=== PATIENT | female | born 1960 | race American Indian/Alaskan Native ===

== ENCOUNTER 2020-06-25 07:56 | Emergency (ER) | payer MEDICARE ==
[2020-06-25 08:04] VITALS: BP 111/92
== END 2020-06-25 10:38 | disposition left against medical advice (07) ==
LOC: ED 07:56
DX: R05 Cough (principal); R09.89 Other specified symptoms and signs involving the circulatory and respiratory systems; J02.9 Acute pharyngitis, unspecified; Z53.21 Procedure and treatment not carried out due to patient leaving prior to being seen by health care provider

== ENCOUNTER 2020-07-17 07:47 | Emergency (ER) | payer MEDICARE ==
[2020-07-17] MEDS ORDERED: SODIUM CHLORIDE 0.9% 1000 ML 1,000 ML IV ONE ×2 (08:29→10:33)
--- NOTE | 2020-07-17 08:30 | Emergency Department Report ---
ED General Adult HPI - General Chief complaint: Dizziness Stated complaint: DIZZINESS PUI?: No Time Seen by Provider: 07/17/20 08:21 Source: patient, RN notes reviewed, old records reviewed Mode of arrival: Ambulatory Limitations: No Limitations - History of Present Illness Initial comments: The patient was evaluated in the emergency department for symptoms described in the history of present illness. He/she was evaluated in the context of the global COVID-19 pandemic, which necessitated consideration that the patient might be at risk for infection with the virus that causes COVID-19. Institutional protocols and algorithms that pertain to the evaluation of patients at risk for COVID-19 are in a state of rapid change based on information released by regulatory bodies including the CDC and federal and state organizations. These policies and algorithms were followed during the patient's care in the emergency department. Please note that these policies, procedures and recommendations changed on a rapid basis. This is a 60-year-old female. She is not known to myself previously. Her past medical history includes general debility, malnutrition, and homelessness. Patient was recently admitted to the medical service at this hospital April 2020. She convalesced well, and was discharged. Today, the patient presents to the ER with a complaint of resolved/generalized dizziness/lightheadedness, which resolved while in the emergency room. She complained of feeling generally lightheaded and weak. She denies headache, neck pain, chest pain, abdominal pain, shortness of breath. She did endorse nonspecific cough, and chest tightness with cough, this has been going on for a few days. No loss of taste, no loss of smell. She denies dysuria. She reports one episode of loose watery brown stool today. She had 2 watery episodes of "diarrhea" yesterday. Urine cultures from 2 months ago were negative for organisms. Patient states she is not currently taking any medications. After being given IV fluids in the emergency room, the patient felt much improved. She does not currently smoke, or consume alcohol or recreational drugs. -: Gradual Consistency: now resolved Improves with: medication (Improved with IV fluid) Worsens with: none - Related Data Home Medications Medication Instructions Recorded Confirmed Last Taken No Known Home Medications [No 07/17/20 07/17/20 Unknown Reported Home Medications] Allergies Allergy/AdvReac Type Severity Reaction Status Date / Time Penicillins Allergy Unknown Verified 07/17/20 10:00 Sulfa (Sulfonamide Allergy Unknown Verified 07/17/20 10:00 Antibiotics) ED Review of Systems ROS: Stated complaint: DIZZINESS Other details as noted in HPI Constitutional: malaise, weakness. denies: fever Eyes: denies: eye discharge ENT: denies: epistaxis Respiratory: cough Cardiovascular: as per HPI. denies: palpitations, dyspnea on exertion, orthopnea, syncope Gastrointestinal: diarrhea. denies: nausea, vomiting Genitourinary: denies: dysuria Musculoskeletal: denies: back pain Skin: denies: lesions Neurological: weakness Hematological/Lymphatic: denies: easy bleeding ED Past Medical Hx - Past Medical History Previous Medical History?: Yes Hx Congestive Heart Failure: No Hx Diabetes: No Hx Asthma: No Hx COPD: No Additional medical history: malnutrition - Surgical History Past Surgical History?: Yes Additional Surgical History: Hysterectomy, Tonsillectomy - Social History Smoking Status: Never Smoker Substance Use Type: Alcohol - Medications Home Medications: Home Medications Medication Instructions Recorded Confirmed Last Taken Type No Known Home Medications [No 07/17/20 07/17/20 Unknown History Reported Home Medications] ED Physical Exam - General Limitations: No Limitations General appearance: alert, in no apparent distress - Head Head exam: Present: atraumatic, normocephalic - Eye Eye exam: Present: normal appearance, PERRL, EOMI, other (Visual acuity intact to finger counting, color perception, reading at a close distance). Absent: nystagmus - ENT ENT exam: Present: normal exam, normal orophraynx, mucous membranes moist, normal external ear exam - Neck Neck exam: Present: normal inspection, full ROM. Absent: tenderness, meningismus - Respiratory Respiratory exam: Present: normal lung sounds bilaterally. Absent: respiratory distress, wheezes, rales, rhonchi, stridor, decreased breath sounds - Cardiovascular Cardiovascular Exam: Present: regular rate, normal rhythm, normal heart sounds. Absent: bradycardia, tachycardia, irregular rhythm, systolic murmur, diastolic murmur, rubs, gallop - GI/Abdominal GI/Abdominal exam: Present: soft. Absent: distended, tenderness, guarding, rebound, rigid, pulsatile mass - Extremities Exam Extremities exam: Present: normal inspection, full ROM, other (2+ pulses noted in the bilateral upper and lower extremities. There is no palpable cord. negative Homans sign. Muscular compartments are soft. The pelvis is stable.). Absent: pedal edema, calf tenderness - Back Exam Back exam: Present: normal inspection, full ROM. Absent: tenderness, CVA tenderness (R), CVA tenderness (L), paraspinal tenderness, vertebral tenderness - Neurological Exam Neurological exam: Present: alert, oriented X3, normal gait, other (There is no facial droop. The tongue is midline. Extraocular movements are intact bilaterally. There is 5 out of 5 strength in bilateral upper and lower extremities. Sensation is intact to light touch bilateral upper and lower extremities. There is no past-pointing. There is no pronator drift. There is normal [id number]. There is a normal gait.). Absent: motor sensory deficit - Psychiatric Psychiatric exam: Present: normal affect, normal mood - Skin Skin exam: Present: warm, dry, intact, normal color. Absent: rash ED Course Vital Signs 07/17/20 07/17/20 07/17/20 08:14 08:30 09:00 Temperature 98.3 F 98 F Pulse Rate 58 L 73 75 Respiratory 20 12 12 Rate Blood Pressure 66/30 Blood Pressure 100/70 120/75 [Left] O2 Sat by Pulse 100 97 99 Oximetry 07/17/20 07/17/20 07/17/20 09:23 09:45 10:00 Temperature Pulse Rate 75 76 74 Respiratory 12 24 16 Rate Blood Pressure 113/66 117/71 Blood Pressure 111/69 [Left] O2 Sat by Pulse 100 99 100 Oximetry 07/17/20 07/17/20 10:45 11:15 Temperature Pulse Rate 73 74 Respiratory 16 17 Rate Blood Pressure 114/70 115/66 Blood Pressure [Left] O2 Sat by Pulse 100 98 Oximetry - Reevaluation(s) Reevaluation #1: 07/17/20 11:20 Differential diagnosis, including the not limited to: Orthostasis, vagal event, structural cardiac disease, dehydration, pulmonary embolism Assessment and plan: 60-year-old female, who is not currently tachycardic, tachypneic or hypoxic, with resolved hypotension, GCS 15, walking with a steady gait, low risk for major adverse cardiac event as per heart score, with a complaint of resolved lightheadedness, improved with fluids, a few days of chest tightness with coughing, troponin negative x1, now in no acute distress. Check basic laboratory studies. EKG x2. D-dimer given nonspecific left axis deviation and EKG, may be secondary to lead placement, however, appears new when compared to prior EKG. Reassess after initial data points. Have discussed plan of care with patient, who is amenable to this plan of care. Reevaluation #2: 07/17/20 12:23 Final reevaluation. Blood pressure 120/70. No episodes of syncope/loss of consciousness. D-dimer negative. EKG #2 unchanged from prior EKG. Left axis deviation resolved. Urinalysis reviewed and appreciated. No endorsement of urinary symptoms. Recently had negative urine cultures. Sleeping comfortably in his regimen, and in no acute distress, patient also walks with a steady gait. Patient has been observed in this department for over 4.5 hours. She has not had any clinical decompensation or untoward events. Most likely diagnosis is orthostasis/vagal event, with dehydration, now corrected with IV fluids. Discussed plan of care with patient. She verbalizes understanding. She is amenable to discharge with close outpatient follow-up. ED Medical Decision Making - Lab Data Result diagrams: 07/17/20 08:35 07/17/20 08:35 Vital Signs 07/17/20 07/17/20 07/17/20 08:14 08:30 09:00 Temperature 98.3 F 98 F Pulse Rate 58 L 73 75 Respiratory 20 12 12 Rate Blood Pressure 66/30 Blood Pressure 100/70 120/75 [Left] O2 Sat by Pulse 100 97 99 Oximetry 07/17/20 07/17/20 07/17/20 09:23 09:45 10:00 Temperature Pulse Rate 75 76 74 Respiratory 12 24 16 Rate Blood Pressure 113/66 117/71 Blood Pressure 111/69 [Left] O2 Sat by Pulse 100 99 100 Oximetry 07/17/20 10:45 Temperature Pulse Rate 73 Respiratory 16 Rate Blood Pressure 114/70 Blood Pressure [Left] O2 Sat by Pulse 100 Oximetry Lab Results 07/17/20 07/17/20 07/17/20 Range/Units 08:35 08:35 08:35 WBC 4.7 (4.5-11.0) K/mm3 RBC 5.53 H (3.65-5.03) M/mm3 Hgb 11.7 (10.1-14.3) gm/dl Hct 37.6 (30.3-42.9) % MCV 68 L (79-97) fl MCH 21 L (28-32) pg MCHC 31 (30-34) % RDW 16.0 H (13.2-15.2) % Plt Count 178 (140-440) K/mm3 Lymph % (Auto) 20.3 (13.4-35.0) % Charles % (Auto) 6.4 (0.0-7.3) % Eos % (Auto) 0.0 (0.0-4.3) % Baso % (Auto) 0.4 (0.0-1.8) % Lymph # (Auto) 1.0 L (1.2-5.4) K/mm3 Charles # (Auto) 0.3 (0.0-0.8) K/mm3 Eos # (Auto) 0.0 (0.0-0.4) K/mm3 Baso # (Auto) 0.0 (0.0-0.1) K/mm3 Seg Neutrophils % 72.9 H (40.0-70.0) % Seg Neutrophils # 3.4 (1.8-7.7) K/mm3 PT 13.6 (12.2-14.9) Sec. INR 1.05 (0.87-1.13) Sodium 139 (137-145) mmol/L Potassium 4.4 (3.6-5.0) mmol/L Chloride 100.6 (98-107) mmol/L Carbon Dioxide 27 (22-30) mmol/L Anion Gap 16 mmol/L BUN 12 (7-17) mg/dL Creatinine 1.1 (0.6-1.2) mg/dL Estimated GFR > 60 ml/min BUN/Creatinine Ratio 11 % Glucose 115 H (65-100) mg/dL Lactic Acid (0.7-2.0) mmol/L Calcium 9.0 (8.4-10.2) mg/dL Magnesium (1.7-2.3) mg/dL Total Bilirubin 0.40 (0.1-1.2) mg/dL AST 29 (5-40) units/L ALT 15 (7-56) units/L Alkaline Phosphatase 65 (35-129) units/L Total Creatine Kinase (30-135) units/L Troponin T < 0.010 (0.00-0.029) ng/mL Total Protein 7.5 (6.3-8.2) g/dL Albumin 4.1 (3.9-5) g/dL Albumin/Globulin Ratio 1.2 % TSH (0.270-4.200) mlU/mL Urine Color (Yellow) Urine Turbidity (Clear) Urine pH (5.0-7.0) Ur Specific [place] (1.003-1.030) Urine Protein (Negative) mg/dL Urine Glucose (UA) (Negative) mg/dL Urine Ketones (Negative) mg/dL Urine Blood (Negative) Urine Nitrite (Negative) Urine Bilirubin (Negative) Urine Urobilinogen (<2.0) mg/dL Ur Leukocyte Esterase (Negative) Urine WBC (Auto) (0.0-6.0) /HPF Urine RBC (Auto) (0.0-6.0) /HPF U Epithel Cells (Auto) (0-13.0) /HPF Urine Mucus /HPF Salicylates (2.8-20.0) mg/dL Acetaminophen (10.0-30.0) ug/mL Plasma/Serum Alcohol (0-0.07) % 07/17/20 07/17/20 07/17/20 Range/Units 08:35 08:35 08:35 WBC (4.5-11.0) K/mm3 RBC (3.65-5.03) M/mm3 Hgb (10.1-14.3) gm/dl Hct (30.3-42.9) % MCV (79-97) fl MCH (28-32) pg MCHC (30-34) % RDW (13.2-15.2) % Plt Count (140-440) K/mm3 Lymph % (Auto) (13.4-35.0) % Charles % (Auto) (0.0-7.3) % Eos % (Auto) (0.0-4.3) % Baso % (Auto) (0.0-1.8) % Lymph # (Auto) (1.2-5.4) K/mm3 Charles # (Auto) (0.0-0.8) K/mm3 Eos # (Auto) (0.0-0.4) K/mm3 Baso # (Auto) (0.0-0.1) K/mm3 Seg Neutrophils % (40.0-70.0) % Seg Neutrophils # (1.8-7.7) K/mm3 PT (12.2-14.9) Sec. INR (0.87-1.13) Sodium (137-145) mmol/L Potassium (3.6-5.0) mmol/L Chloride (98-107) mmol/L Carbon Dioxide (22-30) mmol/L Anion Gap mmol/L BUN (7-17) mg/dL Creatinine (0.6-1.2) mg/dL Estimated GFR ml/min BUN/Creatinine Ratio % Glucose (65-100) mg/dL Lactic Acid 1.00 (0.7-2.0) mmol/L Calcium (8.4-10.2) mg/dL Magnesium 2.50 H (1.7-2.3) mg/dL Total Bilirubin (0.1-1.2) mg/dL AST (5-40) units/L ALT (7-56) units/L Alkaline Phosphatase (35-129) units/L Total Creatine Kinase 115 (30-135) units/L Troponin T (0.00-0.029) ng/mL Total Protein (6.3-8.2) g/dL Albumin (3.9-5) g/dL Albumin/Globulin Ratio % TSH (0.270-4.200) mlU/mL Urine Color (Yellow) Urine Turbidity (Clear) Urine pH (5.0-7.0) Ur Specific [place] (1.003-1.030) Urine Protein (Negative) mg/dL Urine Glucose (UA) (Negative) mg/dL Urine Ketones (Negative) mg/dL Urine Blood (Negative) Urine Nitrite (Negative) Urine Bilirubin (Negative) Urine Urobilinogen (<2.0) mg/dL Ur Leukocyte Esterase (Negative) Urine WBC (Auto) (0.0-6.0) /HPF Urine RBC (Auto) (0.0-6.0) /HPF U Epithel Cells (Auto) (0-13.0) /HPF Urine Mucus /HPF Salicylates (2.8-20.0) mg/dL Acetaminophen (10.0-30.0) ug/mL Plasma/Serum Alcohol < 0.01 (0-0.07) % 11/22/20 11/22/20 11/22/20 Range/Units 08:35 08:35 08:35 WBC (4.5-11.0) K/mm3 RBC (3.65-5.03) M/mm3 Hgb (10.1-14.3) gm/dl Hct (30.3-42.9) % MCV (79-97) fl MCH (28-32) pg MCHC (30-34) % RDW (13.2-15.2) % Plt Count (140-440) K/mm3 Lymph % (Auto) (13.4-35.0) % Charles % (Auto) (0.0-7.3) % Eos % (Auto) (0.0-4.3) % Baso % (Auto) (0.0-1.8) % Lymph # (Auto) (1.2-5.4) K/mm3 Charles # (Auto) (0.0-0.8) K/mm3 Eos # (Auto) (0.0-0.4) K/mm3 Baso # (Auto) (0.0-0.1) K/mm3 Seg Neutrophils % (40.0-70.0) % Seg Neutrophils # (1.8-7.7) K/mm3 PT (12.2-14.9) Sec. INR (0.87-1.13) Sodium (137-145) mmol/L Potassium (3.6-5.0) mmol/L Chloride (98-107) mmol/L Carbon Dioxide (22-30) mmol/L Anion Gap mmol/L BUN (7-17) mg/dL Creatinine (0.6-1.2) mg/dL Estimated GFR ml/min BUN/Creatinine Ratio % Glucose (65-100) mg/dL Lactic Acid (0.7-2.0) mmol/L Calcium (8.4-10.2) mg/dL Magnesium (1.7-2.3) mg/dL Total Bilirubin (0.1-1.2) mg/dL AST (5-40) units/L ALT (7-56) units/L Alkaline Phosphatase (35-129) units/L Total Creatine Kinase (30-135) units/L Troponin T (0.00-0.029) ng/mL Total Protein (6.3-8.2) g/dL Albumin (3.9-5) g/dL Albumin/Globulin Ratio % TSH 2.240 (0.270-4.200) mlU/mL Urine Color (Yellow) Urine Turbidity (Clear) Urine pH (5.0-7.0) Ur Specific [place] (1.003-1.030) Urine Protein (Negative) mg/dL Urine Glucose (UA) (Negative) mg/dL Urine Ketones (Negative) mg/dL Urine Blood (Negative) Urine Nitrite (Negative) Urine Bilirubin (Negative) Urine Urobilinogen (<2.0) mg/dL Ur Leukocyte Esterase (Negative) Urine WBC (Auto) (0.0-6.0) /HPF Urine RBC (Auto) (0.0-6.0) /HPF U Epithel Cells (Auto) (0-13.0) /HPF Urine Mucus /HPF Salicylates < 0.3 L (2.8-20.0) mg/dL Acetaminophen 5.0 L (10.0-30.0) ug/mL Plasma/Serum Alcohol (0-0.07) % 07/17/20 Range/Units 09:53 WBC (4.5-11.0) K/mm3 RBC (3.65-5.03) M/mm3 Hgb (10.1-14.3) gm/dl Hct (30.3-42.9) % MCV (79-97) fl MCH (28-32) pg MCHC (30-34) % RDW (13.2-15.2) % Plt Count (140-440) K/mm3 Lymph % (Auto) (13.4-35.0) % Charles % (Auto) (0.0-7.3) % Eos % (Auto) (0.0-4.3) % Baso % (Auto) (0.0-1.8) % Lymph # (Auto) (1.2-5.4) K/mm3 Charles # (Auto) (0.0-0.8) K/mm3 Eos # (Auto) (0.0-0.4) K/mm3 Baso # (Auto) (0.0-0.1) K/mm3 Seg Neutrophils % (40.0-70.0) % Seg Neutrophils # (1.8-7.7) K/mm3 PT (12.2-14.9) Sec. INR (0.87-1.13) Sodium (137-145) mmol/L Potassium (3.6-5.0) mmol/L Chloride (98-107) mmol/L Carbon Dioxide (22-30) mmol/L Anion Gap mmol/L BUN (7-17) mg/dL Creatinine (0.6-1.2) mg/dL Estimated GFR ml/min BUN/Creatinine Ratio % Glucose (65-100) mg/dL Lactic Acid (0.7-2.0) mmol/L Calcium (8.4-10.2) mg/dL Magnesium (1.7-2.3) mg/dL Total Bilirubin (0.1-1.2) mg/dL AST (5-40) units/L ALT (7-56) units/L Alkaline Phosphatase (35-129) units/L Total Creatine Kinase (30-135) units/L Troponin T (0.00-0.029) ng/mL Total Protein (6.3-8.2) g/dL Albumin (3.9-5) g/dL Albumin/Globulin Ratio % TSH (0.270-4.200) mlU/mL Urine Color Yellow (Yellow) Urine Turbidity Clear (Clear) Urine pH 6.0 (5.0-7.0) Ur Specific [place] 1.018 (1.003-1.030) Urine Protein 100 mg/dl (Negative) mg/dL Urine Glucose (UA) Neg (Negative) mg/dL Urine Ketones Neg (Negative) mg/dL Urine Blood Neg (Negative) Urine Nitrite Neg (Negative) Urine Bilirubin Neg (Negative) Urine Urobilinogen < 2.0 (<2.0) mg/dL Ur Leukocyte Esterase Mod (Negative) Urine WBC (Auto) 20.0 H (0.0-6.0) /HPF Urine RBC (Auto) 3.0 (0.0-6.0) /HPF U Epithel Cells (Auto) 2.0 (0-13.0) /HPF Urine Mucus Few /HPF Salicylates (2.8-20.0) mg/dL Acetaminophen (10.0-30.0) ug/mL Plasma/Serum Alcohol (0-0.07) % - EKG Data -: EKG Interpreted by Pr EKG shows normal: sinus rhythm Rate: normal - EKG Data 07/17/20 11:19 Sinus rhythm, 72 bpm, left axis deviation, borderline atrial enlargement, minimal motion artifact. Abnormal EKG. Not a STEMI. Appears grossly unchanged from prior EKG, from April 2020, although left axis deviation appears to be somewhat new. - Radiology Data Radiology results: pending, report reviewed, image reviewed X-ray of the chest is negative for acute disease Critical care attestation.: If time is entered above; I have spent that time in minutes in the direct care of this critically ill patient, excluding procedure time. ED Disposition Clinical Impression: Dehydration, Pyuria, Lightheadedness Disposition: - TO HOME OR SELFCARE Is pt being admited?: No Does the pt Need Aspirin: No Condition: Stable Referrals: PRIMARY CARE, [Primary Care Provider] - 3-5 Days Heart Score - HEART Score History: Slightly suspicious EKG: Non-specific Age: 45-65 Risk factors: 1-2 risk factors Troponin: < normal limit HEART Score: 3 - Critical Actions Critical Actions: 0-3 pts:0.9-1.7%risk of adverse cardiac event.Candidate for discharge
[2020-07-17 08:57] LABS: Basophils % (Auto) 0.4 % (0.0-1.8); Hematocrit 37.6 % (30.3-42.9); Hemoglobin 11.7 gm/dl (10.1-14.3); Lymphocytes % (Auto) 20.3 % (13.4-35.0); Mean Corpuscular HGB Conc 31 % (30-34); Monocytes # (Auto) 0.3 K/mm3 (0.0-0.8); Monocytes % (Auto) 6.4 % (0.0-7.3); Platelet Count 178 K/mm3 (140-440); Red Blood Count 5.53 M/mm3 (3.65-5.03)
[2020-07-17 09:01] LABS: Mean Corpuscular Volume 68 fl (79-97)
[2020-07-17 09:05] LABS: INR 1.05 (0.87-1.13)
[2020-07-17 09:20] LABS: Alanine Aminotransferase 15 units/L (7-56); Albumin 4.1 g/dL (3.9-5); BUN/Creatinine Ratio 11; Blood Urea Nitrogen 12 mg/dL (7-17); Hemolysis Index 1
--- NOTE | 2020-07-17 09:39 | XRay Report ---
CHEST 1 VIEW 07/17/2020 8:28 AM INDICATION / CLINICAL INFORMATION: Chest Pain. COMPARISON: None available. FINDINGS: SUPPORT DEVICES: None. HEART / MEDIASTINUM: No significant abnormality. LUNGS / PLEURA: No significant pulmonary or pleural abnormality. No pneumothorax. ADDITIONAL FINDINGS: No significant additional findings. IMPRESSION: 1. No acute findings. Signer Name: Phani Aguilar MD Signed: 07/17/2020 9:34 AM Workstation Name: [id number]
[2020-07-17 10:10] LABS: Bilirubin,Urine NEG (Negative); Blood,Urine NEG (Negative); Color,Urine Yellow (Yellow); Mucus,Urine FEW /HPF; Urobilinogen,Urine < 2.0 mg/dL (<2.0)
[2020-07-17 13:47] VITALS: BP 104/61
== END 2020-07-17 13:53 | disposition home or self-care (01) ==
LOC: ED 07:47
DX: E86.0 Dehydration (principal); R82.81 Pyuria; R42 Dizziness and giddiness; Z90.710 Acquired absence of both cervix and uterus; Z90.89 Acquired absence of other organs; Z88.0 Allergy status to penicillin; Z88.2 Allergy status to sulfonamides
CPT/HCPCS: 36415; 71045; 80053; 81001; 82140; 82550; 83735; 84443; 84484; 85025; 85379; 85610; 87086; 93005; 96360; 96361; 99284; J7030; 80320; G0480